=== PATIENT | female | born 1935 | race Caucasian/White ===

== ENCOUNTER 2017-04-01 16:25 | Inpatient (IN) | payer OTHER, MEDICARE ==
[~2017-04-01] VITALS: Ht 157.5 cm; Wt 71.9 kg
[2017-04-01] VITALS (8 sets, daily range): BP systolic 136–181; BP diastolic 75–89; PULSE 74–97; RESP 16–20; TEMP 98.1–98.7; O2SAT 92–100
[~2017-04-01 16:25] MED LIST: LOVA20TA PO; PRED10 PO; RANI150 PO; SERT50 PO; VALI5TAB PO
[2017-04-01] MEDS ORDERED: SODIUM CHLORIDE 0.9% FLUSH 10 ML FLUSH IVF PRN (16:45)
[2017-04-01] MEDS ORDERED: DIAZ5TAB PO (16:58)
[2017-04-01] MEDS ORDERED: LOVA20TA PO (16:58)
[2017-04-01] MEDS ORDERED: SODIUM CHLORID 0.9% 500 ML INJ 500 ML IV ONE (17:15)
--- NOTE | 2017-04-01 17:16 | PD ---
HPI Chief Complaint: Fall Time Seen by Provider: 16:49 Travel History International Travel<30 days: No Contact w/Intl Traveler<30days: No Traveled to known affect area: No History of Present Illness HPI 81-year-old female patient with history of hypertension and previous TIA, presents to the ER today because she states that she was on the toilet today and as she was getting up, suddenly had loss of strength and went down on the toilet hitting the back of the toilet and breaking it, and falling to the floor. She reports hitting the lower back area to the floor. She denies any head injury or loss of consciousness. She states after she fell, she felt very dizzy and felt like the room was spinning, like she was having vertigo. Symptoms lasted for several hours but is now subsiding. She denies any numbness , weakness, vomiting, or any other symptoms. Modifying Factors: None Associated Signs & Symptoms: Fall, vertigo Risk Factors: Elderly PFSH Past Medical History Hx Anticoagulant Therapy: Yes (asa 81mg) Blood Disorders: No Anxiety: Yes Depression: Yes Heart Rhythm Problems: No Cancer: No Cardiovascular Problems: Yes High Cholesterol: Yes Chest Pain: No Congestive Heart Failure: No Diminished Hearing: No Endocrine: No Genitourinary: No Hypertension: Yes Immune Disorder: No Musculoskeletal: No Neurologic: Yes (POSSIBLE TIA THIS ADMISSION 12/2015) Psychiatric: Yes Respiratory: No Tetanus Vaccination: Unknown Influenza Vaccination: No Menopausal: No Past Surgical History Other Surgery: Yes (biopsy right breast ) Social History Alcohol Use: No Tobacco Use: No Substance Use: No Allergies-Medications (Allergen,Severity, Reaction): Coded Allergies: No Known Allergies (Unverified , 04/01/17) Reported Meds & Prescriptions Reported Meds & Active Scripts Active Reported Lovastatin 20 Mg Tab 20 Mg PO DAILY Diazepam 5 Mg Tab 5 Mg PO TID PRN Review of Systems Except as stated in HPI: all other systems reviewed are Neg Physical Exam Narrative GENERAL: [Well-developed pleasant elderly white female patient currently in mild distress. Awake and oriented 3. SKIN: Focused skin assessment warm/dry. HEAD: Atraumatic. Normocephalic. EYES: Pupils equal and round. No scleral icterus. No injection or drainage. ENT: No nasal bleeding or discharge. Mucous membranes pink and moist. NECK: Trachea midline. No JVD. CARDIOVASCULAR: Regular rate and rhythm. No murmur appreciated. RESPIRATORY: No accessory muscle use. Clear to auscultation. Breath sounds equal bilaterally. GASTROINTESTINAL: Abdomen soft, non-tender, nondistended. Hepatic and splenic margins not palpable. BACK: No CVA tenderness. No rash. No point tenderness on palpation of the spine. There is notable ecchymosis to the right lower back area and right buttocks area which are mildly tender to palpation. MUSCULOSKELETAL: No obvious deformities. No clubbing. No cyanosis. No edema. NEUROLOGICAL: Awake and alert. No obvious cranial nerve deficits. Motor grossly within normal limits. Normal speech. No pronator drift. PSYCHIATRIC: Appropriate mood and affect; insight and judgment normal. Data Data Last Documented VS Vital Signs Date Time Temp Pulse Resp B/P Pulse Ox O2 Delivery O2 Flow Rate FiO2 04/01/17 18:03 100 Room Air 04/01/17 18:03 88 16 145/75 04/01/17 16:35 98.7 Orders Electrocardiogram (04/01/17 16:41) Complete Blood Count With Diff (04/01/17 16:41) Comprehensive Metabolic Panel (04/01/17 16:41) Magnesium (Mg) (04/01/17 16:41) Ckmb (Isoenzyme) Profile (04/01/17 16:41) Troponin I (04/01/17 16:41) Act Partial Throm Time (Ptt) (04/01/17 16:41) Prothrombin Time / Inr (Pt) (04/01/17 16:41) Urinalysis - C+S If Indicated (04/01/17 16:41) Ct Brain W/O Iv Contrast(Rout) (04/01/17 16:41) Ecg Monitoring (04/01/17 16:41) Iv Access Insert/Monitor (04/01/17 16:41) Oximetry (04/01/17 16:41) Sodium Chloride 0.9% Flush (Ns Flush) (04/01/17 16:45) Chest, Single Ap (04/01/17 16:49) Pelvis, Ap Only (Routine) (04/01/17 16:49) Sodium Chlorid 0.9% 500 Ml Inj (Ns 500 M (04/01/17 17:15) Aspirin (Aspirin) (04/01/17 18:15) Labs Laboratory Tests Test 04/01/17 17:02 White Blood Count 9.6 TH/MM3 Red Blood Count 4.76 MIL/MM3 Hemoglobin 14.2 GM/DL Hematocrit 42.8 % Mean Corpuscular Volume 89.8 FL Mean Corpuscular Hemoglobin 29.7 PG Mean Corpuscular Hemoglobin 33.1 % Concent Red Cell Distribution Width 12.7 % Platelet Count 194 TH/MM3 Mean Platelet Volume 7.8 FL Neutrophils (%) (Auto) 72.5 % Lymphocytes (%) (Auto) 16.4 % Monocytes (%) (Auto) 9.8 % Eosinophils (%) (Auto) 0.4 % Basophils (%) (Auto) 0.9 % Neutrophils # (Auto) 7.0 TH/MM3 Lymphocytes # (Auto) 1.6 TH/MM3 Monocytes # (Auto) 0.9 TH/MM3 Eosinophils # (Auto) 0.0 TH/MM3 Basophils # (Auto) 0.1 TH/MM3 CBC Comment DIFF FINAL Differential Comment Prothrombin Time 10.9 SEC Prothromb Time International 1.0 RATIO Ratio Activated Partial 21.7 SEC Thromboplast Time Sodium Level 141 MEQ/L Potassium Level 4.1 MEQ/L Chloride Level 107 MEQ/L Carbon Dioxide Level 27.9 MEQ/L Anion Gap 6 MEQ/L Blood Urea Nitrogen 18 MG/DL Creatinine 1.10 MG/DL Estimat Glomerular Filtration 47 ML/MIN Rate Random Glucose 107 MG/DL Calcium Level 8.9 MG/DL Magnesium Level 2.1 MG/DL Total Bilirubin 0.4 MG/DL Aspartate Amino Transf 28 U/L (AST/SGOT) Alanine Aminotransferase 35 U/L (ALT/SGPT) Alkaline Phosphatase 75 U/L Total Creatine Kinase 99 U/L Troponin I 0.10 NG/ML Total Protein 7.5 GM/DL Albumin 3.5 GM/DL [facility] Medical Decision Making Medical Screen Exam Complete: Yes Emergency Medical Condition: Yes Medical Record Reviewed: Yes Interpretation(s) EKG shows NSR, no ST elevation or depression, and no arrhythmias. No significant T-wave inversions. Laboratory Tests Test 04/01/17 17:02 Neutrophils (%) (Auto) 72.5 % (16.0-70.0) Monocytes (%) (Auto) 9.8 % (0.0-8.0) Activated Partial 21.7 SEC Thromboplast Time (24.3-30.1) Creatinine 1.10 MG/DL (0.50-1.00) Estimat Glomerular Filtration 47 ML/MIN (>89) Rate Random Glucose 107 MG/DL (74-106) Troponin I 0.10 NG/ML (0.02-0.05) Last 24 hours Impressions Pelvis X-Ray 04/01/171648 Signed Impressions: Service Date/Time: , April 01, 2017 17:18 - CONCLUSION: 1. No acute fracture or dislocation. Noel Patino MD Chest X-Ray 04/01/171648 Signed Impressions: Service Date/Time: , April 01, 2017 17:16 - CONCLUSION: 1. Mild left lung base atelectasis. Noel Patino MD Head CT 04/01/171640 Signed Impressions: Service Date/Time: , April 01, 2017 17:18 - CONCLUSION: Normal examination. Trae Pitts MD Differential Diagnosis Fall, dizzinessdysrhythmias versus TIA versus vertigo versus orthostasis versus metabolic issues versus dehydration Narrative Course EKG did not show any signs of dysrhythmias. Lab work is unremarkable for significant metabolic issues. Her troponin is mildly elevated for unknown reasons. She is not having any chest pains or shortness of breath. She has no focal neurological deficits. EKG did not show any signs of acute dysrhythmias or ST changes. At this point, considering the mildly elevated cardiac enzymes, patient should get further evaluation of her heart. My plan would be to admit her for further evaluation. Case is discussed with Dr. Jamison for admission. Diagnosis Primary Impression: Dizziness Additional Impression: Elevated troponin Admitting Information Admitting Physician Requests: Admit Randi Henderson MD Apr 01, 2017 17:16 Randi Henderson MD Apr 01, 2017 17:16
[2017-04-01 17:21] LABS: BASOPHIL # 0.1 TH/MM3 (0-0.2); BASOPHIL % 0.9 % (0.0-2.0); EOSINOPHIL % 0.4 % (0.0-4.0); HEMATOCRIT 42.8 % (35.0-46.0); LYMPH % 16.4 % (9.0-44.0); LYMPHOCYTE # 1.6 TH/MM3 (1.0-4.8); MEAN CELL VOLUME 89.8 FL (80.0-100.0); MEAN CORPUSCULAR HEMOGLOBIN 29.7 PG (27.0-34.0); MEAN CORPUSCULAR HGB CONC 33.1 % (32.0-36.0); MONO % 9.8 % (0.0-8.0); NEUT % 72.5 % (16.0-70.0); PLATELET COUNT 194 TH/MM3 (150-450); RED BLOOD COUNT 4.76 MIL/MM3 (4.00-5.30); RED CELL DISTRIBUTION WIDTH 12.7 % (11.6-17.2); WHITE BLOOD COUNT 9.6 TH/MM3 (4.0-11.0)
[2017-04-01 17:22] LABS: HEMO FLAGS DIFF FINAL
[2017-04-01 17:30] LABS: CHLORIDE 107 MEQ/L (98-107); POTASSIUM 4.1 MEQ/L (3.5-5.1); SODIUM (NA) 141 MEQ/L (136-145)
--- NOTE | 2017-04-01 17:32 | RADRPT ---
EXAM DATE/TIME: 04/01/2017 17:16 [facility] COMPARISON: CHEST SINGLE AP, December 22, 2015, 16:45. INDICATIONS : Shortness of breath after falling in her bathroom this morning. MEDICAL HISTORY : Hypercholesterolemia. SURGICAL HISTORY : Biopsy right breast. ENCOUNTER: Initial ACUITY: 1 day PAIN SCORE: 0/10 LOCATION: Bilateral chest FINDINGS: Mild airspace disease in the left lung base likely reflects atelectasis. No significant pneumothorax or pleural effusion. Cardiomediastinal contours are within normal limits. Bony thorax is grossly inta ct. CONCLUSION: 1. Mild left lung base atelectasis. Noel Patino MD on April 01, 2017 at 17:28 Board Certified Radiologist. This report was verified electronically.
--- NOTE | 2017-04-01 17:33 | RADRPT ---
EXAM DATE/TIME: 04/01/2017 17:18 [facility] COMPARISON: No previous studies available for comparison. INDICATIONS : Right hip/buttox pain after falling in her bathroom this morning. MEDICAL HISTORY : Hypercholesterolemia. SURGICAL HISTORY : Biopsy right breast. ENCOUNTER: Initial ACUITY: 1 day PAIN SCORE: 7/10 LOCATION: pelvis FINDINGS: A single frontal view of the pelvis demonstrates no evidence of fracture. The bony pelvic ring is in tact. Bony mineralization is normal for age. Degenerative spondylosis of the lower lumbar spine. Th e soft tissues are intact. CONCLUSION: 1. No acute fracture or dislocation. Noel Patino MD on April 01, 2017 at 17:30 Board Certified Radiologist. This report was verified electronically.
[2017-04-01 17:34] LABS: ANION GAP 6 MEQ/L (5-15); BICARBONATE 27.9 MEQ/L (21.0-32.0); MAGNESIUM 2.1 MG/DL (1.5-2.5)
[2017-04-01 17:35] LABS: APTT (PATIENT) 21.7 SEC (24.3-30.1); BLOOD UREA NITROGEN 18 MG/DL (7-18); PROTHROMBIN TIME - PATIENT 10.9 SEC (9.8-11.6)
--- NOTE | 2017-04-01 17:35 | RADRPT ---
EXAM DATE/TIME: 04/01/2017 17:18 [facility] COMPARISON: CT BRAIN W/O CONTRAST, December 22, 2015, 17:06. INDICATIONS : Dizziness. Fall. RADIATION DOSE: 61.05 CTDIvol (mGy) MEDICAL HISTORY : Cerebrovascular disease. Cardiovascular disease Hypertension. SURGICAL HISTORY : None. ENCOUNTER: Initial ACUITY: 1 day PAIN SCALE: 0/10 LOCATION: cranial TECHNIQUE: Multiple contiguous axial images were obtained of the head. Using automated exposure control and adj ustment of the mA and/or kV according to patient size, radiation dose was kept as low as reasonably a chievable to obtain optimal diagnostic quality images. DICOM format image data is available electro nically for review and comparison. FINDINGS: CEREBRUM: The ventricles are normal for age. No evidence of midline shift, mass lesion, hemorrhage or acute in farction. No extra-axial fluid collections are seen. POSTERIOR FOSSA: The cerebellum and brainstem are intact. The 4th ventricle is midline. The cerebellopontine angle i s unremarkable. EXTRACRANIAL: The visualized portion of the orbits is intact. SKULL: The calvaria is intact. No evidence of skull fracture. CONCLUSION: Normal examination. Trae Pitts MD on April 01, 2017 at 17:33 Board Certified Radiologist. This report was verified electronically.
[2017-04-01 17:37] LABS: ALT (GPT) 35 U/L (10-53); AST (GOT) 28 U/L (15-37)
[2017-04-01 17:38] LABS: GLOMERULAR FILTRATION RATE 47 ML/MIN (>89)
[2017-04-01 17:39] LABS: TOTAL BILIRUBIN ADULT 0.4 MG/DL (0.2-1.0)
[2017-04-01 17:40] LABS: ALKALINE PHOSPHATASE 75 U/L (45-117)
[2017-04-01 17:57] LABS: CREATINE KINASE 99 U/L (26-192)
[2017-04-01] MEDS ORDERED: ASPIRIN 325 MG TAB PO ONE (18:15)
[2017-04-01] MEDS ORDERED: SODIUM CHLORIDE 0.9% FLUSH 10 ML FLUSH IV FLUSH PRN (18:30)
[2017-04-01] MEDS ORDERED: SENNOSIDES 8.6 MG TAB PO PRN (18:30)
[2017-04-01] MEDS ORDERED: NALOXONE HCL 0.4 MG/ML AMP IV PRN (18:30)
[2017-04-01] MEDS ORDERED: MAGNESIUM HYDROXIDE SUSP 30 ML CUP PO PRN (18:30)
[2017-04-01] MEDS ORDERED: LACTULOSE SYRUP 20 GM/30 ML CUP PO PRN (18:30)
[2017-04-01] MEDS ORDERED: BISACODYL 10 MG SUPP RECTAL PRN (18:30)
[2017-04-01 18:39] LABS: BLOOD, URINE NEG (NEG); GLUCOSE,URINE NEG (NEG); KETONE, URINE NEG (NEG); NITRITE,URINE NEG (NEG); PH, URINE 7.5 (5.0-8.5)
[2017-04-01] MEDS: SODIUM CHLOR 0.45% 1000 ML INJ 1,000 ML IV SCH (18:41)
[2017-04-01 18:54] LABS: URINE COLOR YELLOW (YELLW/STRAW)
[2017-04-01 18:55] LABS: MUCUS URINE FEW /lpf (OCC)
[2017-04-01 18:56] LABS: COMMENT (UR) CULTURE INDICATED; CULTURE IF INDICATED CULTURE INDICATED; RBC, URINE 0-3 /hpf (0-3); RENAL EPITHELIAL CELLS 0-5 /hpf; SQUAMOUS EPITHELIAL CELL URINE > 8 /hpf (0-5)
[2017-04-01] MEDS: SODIUM CHLORIDE 0.9% FLUSH 10 ML FLUSH IV FLUSH SCH (22:00)
[2017-04-02] VITALS (8 sets, daily range): BP systolic 105–138; BP diastolic 57–77; PULSE 65–84; RESP 16–20; TEMP 97–99.3; O2SAT 92–96
--- NOTE | 2017-04-02 06:07 | PD.CONS ---
HPI Consult Requested By Reason for Consult Elevated troponin Primary Care Physician No Primary Care Physician History of Present Illness The patient has no cardiac history. She is very active. 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 Yesterday morning at 6:30 in the morning she had urinated. She got up and the room started spinning. She fell back. She did try doing this again and the room was spinning. On and off all day when she look into the distance her vision would be spinning. She had no lightheadedness, chest pain, shortness of breath or any other cardiac symptomatology. The spinning has resolved. Review of Systems Respiratory: DENIES: Snoring Gastrointestinal: DENIES: Change in bowel habits Genitourinary: DENIES: Urinary incontinence Neurologic: COMPLAINS OF: Poor Balance, DENIES: Tingling or numbness Past Family Social History Allergies: Coded Allergies: No Known Allergies (Unverified , 04/01/17) Past Medical History Hyperlipidemia Past Surgical History Breast biopsy Reported Medications Reported Meds & Active Scripts Active Reported Lovastatin 20 Mg Tab 20 Mg PO DAILY Diazepam 5 Mg Tab 5 Mg PO TID PRN Active Ordered Medications Current Medications Medications (Trade) Dose Ordered Sig/Deneen Route Start Time Stop Time Status Last Admin (09/14 NS 1000 ml Inj) 1,000 ml @ 75 mls/hr [id number] IV 04/01/17 18:28 04/01/17 18:41 (NS Flush) 2 ml UNSCH PRN IV FLUSH 04/01/17 18:30 (NS Flush) 2 ml BID IV FLUSH 04/01/17 21:00 04/01/17 22:00 (Narcan Inj) 0.4 mg UNSCH PRN IV 04/01/17 18:30 (Milk Of Magnesia Liq) 30 ml Q12H PRN PO 04/01/17 18:30 (Senokot) 17.2 mg Q12H PRN PO 04/01/17 18:30 (Dulcolax Supp) 10 mg DAILY PRN RECTAL 04/01/17 18:30 (Lactulose Liq) 30 ml DAILY PRN PO 04/01/17 18:30 Family History Brother who had an RI at age 65 Social History She is a . She never smoked and very rarely drinks. Physical Exam Vital Signs Vital Signs Date Time Temp Pulse Resp B/P Pulse Ox O2 Delivery O2 Flow Rate FiO2 04/02/17 04:00 98.0 84 16 105/57 93 04/02/17 00:00 97.4 75 16 138/77 96 04/01/17 21:59 77 04/01/17 20:42 98.1 79 18 144/81 94 04/01/17 20:35 74 20 136/76 98 04/01/17 20:00 74 20 142/80 97 04/01/17 19:24 98 04/01/17 19:18 82 20 176/89 86 20 181/79 165/79 04/01/17 18:03 100 Room Air 04/01/17 18:03 88 16 145/75 100 Room Air 04/01/17 16:52 98 Room Air 04/01/17 16:52 16 98 Room Air 04/01/17 16:35 98.7 97 16 138/75 92 Physical Exam CONSTITUTIONAL: A well-developed, well-nourished patient in no apparent distress. EYES: Conjunctiva normal. Sclera nonicteric. Eyelids normal. No xanthelasma. HEENT: Oral mucosa normal without pallor or cyanosis. NECK: JVD less than or equal to 5 cm of water. RESPIRATORY: Breathing is unlabored without accessory muscle use. Normal breath sounds. No wheezes, rales or rubs present. CARDIOVASCULAR: Normal point of maximal impulse. No cardiac thrill present. Regular rate and rhythm. No murmurs, gallops, rubs or clicks present. PULSES: Carotid arteries: Normal pulses bilaterally without bruits. Palmar arteries: Radial pulses 2+ bilaterally Abdominal aorta: Aortic pulses normal without bruits or enlargement. Femoral arteries: 2+ bilaterally. No bruits present. Pedal pulses: 2+ bilaterally PERIPHERAL CIRCULATION: No cyanosis, clubbing, edema or varicosities present. GASTROINTESTINAL: Normal bowel sounds. Nontender without rigidity or guarding. No masses present. No hepatomegaly. Liver is nontender to palpation and spleen is nonpalpable. Digital rectal exam-not indicated for cardiovascular exam. MUSCULOSKELETAL: No kyphosis or scoliosis present. The patient is not ambulated. Able to undergo rehabilitation. SKIN: Skin turgor is normal. No rashes. NEUROLOGIC: Grossly oriented to person, place and time. Normal mood and appropriate affect. Laboratory EKG shows sinus rhythm and is essentially normal with at most borderline nonspecific T-wave changes. Laboratory Tests Test 04/01/17 04/01/17 04/01/17 17:02 18:16 22:29 White Blood Count 9.6 Red Blood Count 4.76 Hemoglobin 14.2 Hematocrit 42.8 Mean Corpuscular Volume 89.8 Mean Corpuscular Hemoglobin 29.7 Mean Corpuscular Hemoglobin 33.1 Concent Red Cell Distribution Width 12.7 Platelet Count 194 Mean Platelet Volume 7.8 Neutrophils (%) (Auto) 72.5 Lymphocytes (%) (Auto) 16.4 Monocytes (%) (Auto) 9.8 Eosinophils (%) (Auto) 0.4 Basophils (%) (Auto) 0.9 Neutrophils # (Auto) 7.0 Lymphocytes # (Auto) 1.6 Monocytes # (Auto) 0.9 Eosinophils # (Auto) 0.0 Basophils # (Auto) 0.1 CBC Comment DIFF FINAL Differential Comment Prothrombin Time 10.9 Prothromb Time International 1.0 Ratio Activated Partial 21.7 Thromboplast Time Sodium Level 141 Potassium Level 4.1 Chloride Level 107 Carbon Dioxide Level 27.9 Anion Gap 6 Blood Urea Nitrogen 18 Creatinine 1.10 Estimat Glomerular Filtration 47 Rate Random Glucose 107 Calcium Level 8.9 Magnesium Level 2.1 Total Bilirubin 0.4 Aspartate Amino Transf 28 (AST/SGOT) Alanine Aminotransferase 35 (ALT/SGPT) Alkaline Phosphatase 75 Total Creatine Kinase 99 Troponin I 0.10 0.19 Total Protein 7.5 Albumin 3.5 Urine Color YELLOW Urine Turbidity CLEAR Urine pH 7.5 Urine Specific [place] 1.009 Urine Protein NEG Urine Glucose (UA) NEG Urine Ketones NEG Urine Occult Blood NEG Urine Nitrite NEG Urine Bilirubin NEG Urine Leukocyte Esterase SMALL Urine RBC 0-3 Urine WBC 9-14 Urine WBC Clumps FEW Urine Squamous Epithelial > 8 Cells Urine Renal Epithelial Cells 0-5 Urine Mucus FEW Microscopic Urinalysis Comment CULTURE INDICATED Date/Time Procedure Status Source Growth 04/01/17 18:16 Urine Culture Received Urine Clean Catch Pending Result Diagram: 04/01/17 1702 04/01/17 170 Imaging Last 48 hours Impressions Pelvis X-Ray 04/01/171648 Signed Impressions: Service Date/Time: March 17:18 - CONCLUSION: 1. No acute fracture or dislocation. Noel Patino MD Chest X-Ray 04/01/17 1649 Signed Impressions: Service Date/Time: March 17:16 - CONCLUSION: 1. Mild left lung base atelectasis. Noel Patino MD Head CT 04/01/17 1641 Signed Impressions: Service Date/Time: , April 01, 2017 17:18 - CONCLUSION: Normal examination. Trae Pitts MD Assessment and Plan Assessment and Plan Problems: Acute vertigo Elevated troponinnonspecific Hyperlipidemia Recommendations: The patient has a mildly elevated troponin but absolutely no cardiac symptoms and essentially normal EKG. She presented with acute vertigo which appears to be noncardiac. I would recommend the following: Vertigo workup with primary service She needs to be on baby aspirin daily along with her statin Echocardiogram is pending I will order a CT angiogram of the coronary arteries. If her echocardiogram and this are essentially normal, I would assume the elevated troponin is nonspecific and not work up further. We will not follow but be available if needed. Please contact us for any significant abnormalities on these tests. I will start her on metoprolol to slow her heart rate for this test but if there are no abnormalities this can be discontinued. I will also take the liberty of starting her on low-dose Lovenox. Ezequiel Zelaya MD Apr 02, 2017 06:07
[2017-04-02] MEDS: METOPROLOL TARTRATE 25 MG TAB PO SCH ×3 (06:18→21:41)
[2017-04-02] MEDS: ENOXAPARIN SODIUM 40 MG/0.4 ML SYRINGE SQ SCH (06:23)
[2017-04-02 06:47] LABS: CHLORIDE 111 MEQ/L (98-107); POTASSIUM 3.9 MEQ/L (3.5-5.1); SODIUM (NA) 144 MEQ/L (136-145)
[2017-04-02 06:52] LABS: ANION GAP 6 MEQ/L (5-15); BICARBONATE 27.4 MEQ/L (21.0-32.0); BLOOD UREA NITROGEN 16 MG/DL (7-18)
[2017-04-02 06:55] LABS: ALT (GPT) 27 U/L (10-53); AST (GOT) 22 U/L (15-37); GLOMERULAR FILTRATION RATE 56 ML/MIN (>89)
[2017-04-02 06:56] LABS: TOTAL BILIRUBIN ADULT 0.4 MG/DL (0.2-1.0)
[2017-04-02 06:58] LABS: ALKALINE PHOSPHATASE 62 U/L (45-117)
[2017-04-02] MEDS: SODIUM CHLOR 0.45% 1000 ML INJ 1,000 ML IV SCH ×2 (08:42→21:42)
[2017-04-02] MEDS: SODIUM CHLORIDE 0.9% FLUSH 10 ML FLUSH IV FLUSH SCH ×2 (08:42→21:41)
--- NOTE | 2017-04-02 08:45 | EKG ---
Date Performed: 04/02/2017 Time Performed: 05:00:15 PTAGE: 81 years EKG: Sinus rhythm BORDERLINE LEFT AXIS DEVIATION BORDERLINE ECG INTERPRETATION BASED ON A DEFAULT AGE OF 38 YEARS NO PREVIOUS TRACING DOCTOR: Yohannes Coburn Interpretating Date/Time 04/02/2017 08:43:06
--- NOTE | 2017-04-02 08:47 | EKG ---
Date Performed: 04/01/2017 Time Performed: 22:24:12 PTAGE: 81 years EKG: Sinus rhythm BORDERLINE LEFT AXIS DEVIATION NONSPECIFIC T-WAVE ABNORMALITY BORDERLINE ECG PREVIOUS TRACING : 04/01/2017 16.51 Compared to prior tracing no significant change DOCTOR: Yohannes Coburn Interpretating Date/Time 04/02/2017 08:45:22
--- NOTE | 2017-04-02 10:52 | RADRPT ---
EXAM DATE/TIME: 04/02/2017 09:28 [facility] COMPARISON: US CAROTID ARTERIES, December 23, 2015, 17:42. INDICATIONS : Syncope. MEDICAL HISTORY : Hypercholesterolemia. Hypertension. TIA. SURGICAL HISTORY : Right breast biopsy. ENCOUNTER: Subsequent ACUITY: 1 day PAIN SCORE: 3/10 LOCATION: Bilateral neck PEAK SYSTOLIC VELOCITIES (cm/sec): ICA/CCA RATIO: Right: 1.1 Left: 1.2 ICA: Right: 89 Left: 135 CCA: Right: 84 Left: 114 ECA: Right: 88 Left: 94 VERTEBRAL: Right: 76 antegrade Left: 61 antegrade Elevated flow velocities and ICA/CCA ratios have been found to correlate with increased degrees of vessel stenosis, calculated as percentage of diameter relative to a normal segment of distal ICA/CCA FINDINGS: RIGHT CAROTID: Minimal calcified plaque. No significant stenosis is visualized. The waveforms are within normal peterson its. LEFT CAROTID: Minimal calcified plaque. No significant stenosis is visualized. The waveforms are within normal peterson its. VERTEBRAL ARTERIES: Antegrade flow is seen in both vertebral arteries. MISCELLANEOUS: None. CONCLUSION: 1. Patent carotid arteries bilaterally. 2. Antegrade flow in both vertebral arteries. Ottoniel Bach Jr., MD on April 02, 2017 at 9:53 Board Certified Radiologist. This report was verified electronically.
[2017-04-02] MEDS ORDERED: NITROGLYCERIN 0.4 MG SL 25 TABS/BTL SL PRN (11:30)
[2017-04-02] MEDS ORDERED: METOPROLOL TARTRATE 5 MG/5 ML VIAL IV PRN (11:30)
[2017-04-02] MEDS ORDERED: METOPROLOL TARTRATE 50 MG TAB PO PRN (11:45)
--- NOTE | 2017-04-02 14:20 | HHI.HP ---
[facility] Primary [facility] Physician No Primary Care Physician Admission Diagnosis dizziness/elevated troponin Diagnoses: Travel History International Travel<30 Days: No Contact w/Intl Traveler <30 Da: No Traveled to Known Affected Are: No History of Present Illness 81-year-old female with history of hyperlipidemia, anxiety, who presents with fall around 6:30 AM on 04/01. She had just gotten up from urinating, felt dizzy , fell back breaking the toilet tank, was able to close off water flow to toilet , however upon doing back up, slipped, falling and hitting her right hip. She denies any lightheadedness, however does report dizziness described as room spinning. She denies any headache. Denies any nausea or vomiting. He does report that today her vertigo seems to have resolved. She denies any chest pain or shortness of breath. She denies any ear pain or difficult hearing. Upon evaluation in ER, troponin found to be slightly elevated up to 0.19, however this has trended down. Review of Systems Performed and negative except for history of present illness and past medical history. Past Family Social History Past Medical History Hyperlipidemia Anxiety Past Surgical History History of right breast biopsy. Benign. No other surgeries Reported Medications Reported Meds & Active Scripts Active Reported Lovastatin 20 Mg Tab 20 Mg PO DAILY Diazepam 5 Mg Tab 5 Mg PO TID PRN Allergies: Coded Allergies: No Known Allergies (Unverified , 04/01/17) Family History Father at age 84 from pancreatic cancer. Mother at age 64 from heart disease Social History Denies any history of smoking. Reports very rare alcohol use. Denies any illicit drugs. Physical Exam Vital Signs Vital Signs Date Time Temp Pulse Resp B/P Pulse Ox O2 Delivery O2 Flow Rate FiO2 04/02/17 11:57 97.0 65 20 121/68 94 04/02/17 08:40 68 04/02/17 08:00 97.8 68 20 135/76 94 04/02/17 04:00 98.0 84 16 105/57 93 04/02/17 00:00 97.4 75 16 138/77 96 04/01/17 21:59 77 04/01/17 20:42 98.1 79 18 144/81 94 04/01/17 20:35 74 20 136/76 98 04/01/17 20:00 74 20 142/80 97 04/01/17 19:24 98 04/01/17 19:18 82 20 176/89 86 20 181/79 165/79 04/01/17 18:03 100 Room Air 04/01/17 18:03 88 16 145/75 100 Room Air 04/01/17 16:52 98 Room Air 04/01/17 16:52 16 98 Room Air 04/01/17 16:35 98.7 97 16 138/75 92 Physical Exam GENERAL: This is a well-nourished, well-developed patient, in no apparent distress. Alert and oriented 3. SKIN: No rashes, ecchymoses or lesions. Cool and dry. HEAD: Atraumatic. Normocephalic. No temporal or scalp tenderness. EYES: Pupils equal round and reactive. Extraocular motions intact. No scleral icterus. No injection or drainage. ENT: Nose without bleeding, purulent drainage or septal hematoma. Throat without erythema, tonsillar hypertrophy or exudate. Uvula midline. Airway patent. NECK: Trachea midline. No JVD or lymphadenopathy. Supple, nontender, no meningeal signs. CARDIOVASCULAR: Regular rate and rhythm without murmurs, gallops, or rubs. RESPIRATORY: Clear to auscultation. Breath sounds equal bilaterally. No wheezes , rales, or rhonchi. GASTROINTESTINAL: Abdomen soft, non-tender, nondistended. No hepato-splenomegaly , or palpable masses. No guarding. MUSCULOSKELETAL: Extremities without clubbing, cyanosis, or edema. No joint tenderness, effusion, or edema noted. No calf tenderness. Negative Homans sign bilaterally. NEUROLOGICAL: Awake and alert. Cranial nerves II through XII intact. Motor and sensory grossly within normal limits. Five out of 5 muscle strength in all muscle groups. Normal speech. Laboratory Laboratory Tests Test 04/01/17 04/01/17 04/01/17 04/02/17 17:02 18:16 22:29 05:45 White Blood Count 9.6 Red Blood Count 4.76 Hemoglobin 14.2 Hematocrit 42.8 Mean Corpuscular Volume 89.8 Mean Corpuscular Hemoglobin 29.7 Mean Corpuscular Hemoglobin 33.1 Concent Red Cell Distribution Width 12.7 Platelet Count 194 Mean Platelet Volume 7.8 Neutrophils (%) (Auto) 72.5 Lymphocytes (%) (Auto) 16.4 Monocytes (%) (Auto) 9.8 Eosinophils (%) (Auto) 0.4 Basophils (%) (Auto) 0.9 Neutrophils # (Auto) 7.0 Lymphocytes # (Auto) 1.6 Monocytes # (Auto) 0.9 Eosinophils # (Auto) 0.0 Basophils # (Auto) 0.1 CBC Comment DIFF FINAL Differential Comment Prothrombin Time 10.9 Prothromb Time International 1.0 Ratio Activated Partial 21.7 Thromboplast Time Sodium Level 141 144 Potassium Level 4.1 3.9 Chloride Level 107 111 Carbon Dioxide Level 27.9 27.4 Anion Gap 6 6 Blood Urea Nitrogen 18 16 Creatinine 1.10 0.95 Estimat Glomerular Filtration 47 56 Rate Random Glucose 107 77 Calcium Level 8.9 8.4 Magnesium Level 2.1 Total Bilirubin 0.4 0.4 Aspartate Amino Transf 28 22 (AST/SGOT) Alanine Aminotransferase 35 27 (ALT/SGPT) Alkaline Phosphatase 75 62 Total Creatine Kinase 99 Troponin I 0.10 0.19 0.12 Total Protein 7.5 6.7 Albumin 3.5 3.2 Urine Color YELLOW Urine Turbidity CLEAR Urine pH 7.5 Urine Specific [place] 1.009 Urine Protein NEG Urine Glucose (UA) NEG Urine Ketones NEG Urine Occult Blood NEG Urine Nitrite NEG Urine Bilirubin NEG Urine Leukocyte Esterase SMALL Urine RBC 0-3 Urine WBC 9-14 Urine WBC [place] FEW Urine Squamous Epithelial > 8 Cells Urine Renal Epithelial Cells 0-5 Urine Mucus FEW Microscopic Urinalysis Comment CULTURE INDICATED Date/Time Procedure Status Source Growth 04/01/17 18:16 Urine Culture Received Urine Clean Catch Pending Result Diagram: 04/01/17 1702 04/02/17 0545 Imaging Last Impressions Carotid Artery Ultrasound 04/02/17 0000 Signed Impressions: Service Date/Time: Sunday, April 02, 2017 09:28 - CONCLUSION: 1. Patent carotid arteries bilaterally. 2. Antegrade flow in both vertebral arteries. Ottoniel Bach Jr., MD Pelvis X-Ray 04/01/17 1649 Signed Impressions: Service Date/Time: March 17:18 - CONCLUSION: 1. No acute fracture or dislocation. Noel Patino MD Chest X-Ray 04/01/17 1649 Signed Impressions: Service Date/Time: March 17:16 - CONCLUSION: 1. Mild left lung base atelectasis. Noel Patino MD Head CT 04/01/17 1641 Signed Impressions: Service Date/Time: , April 01, 2017 17:18 - CONCLUSION: Normal examination. Trae Pitts MD Assessment and Plan Assessment and Plan //Vertigo. Currently resolved. Continue to monitor. Instructed patient on [place] maneuver if necessary. //Possible presyncope as described in the ER. Does not appear to be the case, however chronic ultrasound ordered and within normal limits. Echocardiogram pending. //Troponin elevation up to 0.19. Subsequently trending down. Worrisome due to symptoms. Echocardiogram pending. Cardiology consultation appreciated. -CTA coronaries pending. Patient may be able to discharge home today as this returns //History of anxiety. Patient denies any anxiety currently. No need for benzodiazepine at this time. //Prophylaxis. Lovenox. Discussed Condition With Patient, nurse. Physician Certification 2 Midnight Certification Type: Admission for Inpatient Services Order for Inpatient Services The services are ordered in accordance with Medicare regulations or non- Medicare payer requirements, as applicable. In the case of services not specified as inpatient-only, they are appropriately provided as inpatient services in accordance with the 2-midnight benchmark. Estimated LOS (days): 2 days is the estimated time the patient will need to remain in the hospital, assuming treatment plan goals are met and no additional complications. Post-Hospital Plan: Home Francisco Jamison MD Apr 02, 2017 14:20
[2017-04-02] MEDS ORDERED: IOHEXOL 350 MG/ML 10 ML VIAL (for RAD DIAG) IV ONE (14:48)
--- NOTE | 2017-04-02 14:51 | EKG ---
Date Performed: 04/01/2017 Time Performed: 16:51:52 PTAGE: 81 years EKG: Sinus rhythm BORDERLINE LEFT AXIS DEVIATION NONSPECIFIC T-WAVE ABNORMALITY BORDERLINE ECG PREVIOUS TRACING : 12/22/2015 16.57 Compared to prior tracing no significant change DOCTOR: Yohannes Coburn Interpretating Date/Time 04/02/2017 14:49:38
--- NOTE | 2017-04-02 15:40 | RADRPT ---
EXAM DATE/TIME: 04/02/2017 12:45 [place] COMPARISON: No previous studies available for comparison. INDICATIONS : Coronary atherosclerosis. Dizziness. IV CONTRAST: 125 cc Omnipaque 350 (iohexol) IV RADIATION DOSE: 35.93 CTDIvol (mGy) MEDICAL HISTORY : Cardiovascular disease. Cerebrovascular disease. Hypertension. SURGICAL HISTORY : None. ENCOUNTER: Initial ACUITY: 2 days PAIN SCALE: 0/10 LOCATION: chest TECHNIQUE: Volumetric scanning was obtained through the heart. Images were acquired on a multislice multiple ro w detector helical scanner timed for acquisition during peak arterial contrast. Images were reconstr ucted using a retrospective gating algorithm including single sector and multi-sector algorithms at m ultiple phases of the cardiac cycle. Images were interpreted using a combination of 2D and 3D visual ization modes including curved planar reformation, thin slab maximum intensity projection and volume rendering. Using automated exposure control and adjustment of the mA and/or kV according to patient size, radiation dose was kept as low as reasonably achievable to obtain optimal diagnostic quality im ages. DICOM format image data is available electronically for review and comparison. FINDINGS: VESSEL ANALYSIS: DOMINANCE: The coronary system is codominant. LEFT MAIN: Normal vessel without calcification or stenosis. LAD: Normal vessel without calcification or stenosis. Scattered intraluminal irregularities.Diagonal arter ies are patent. CIRCUMFLEX: Normal vessel without calcification or stenosis. Scattered intraluminal irregularities. Obtuse margin al branches are patent. Posterior lateral branches are patent. RCA: Normal vessel without calcification or stenosis. Scattered intraluminal irregularities. Posterior santosh cending arteries are patent. OTHER: None. CONCLUSION: 1. Mild atherosclerotic changes. 2. No stenosis or aneurysm of coronary arteries. Ananda Hannah MD on April 02, 2017 at 15:33 Board Certified Radiologist. This report was verified electronically.
--- NOTE | 2017-04-02 16:28 | ECHRPT ---
Indication: SYNCOPE CONCLUSIONS Normal left ventricular size. Mild concentric left ventricular hypertrophy. The left ventricular systolic function is low normal with an estimated ejection fraction in the rang e of 50- 55%. Doppler parameters are consistent with impaired left ventricular relaxtion (grade 1 diastolic dysfun ction). No regional wall motion abnormalities are present. image quality limited due to technical difficulties There is mild tricuspid valve regurgitation. Normal estimated pulmonary pressures. BP: 105 / 57 HR: 84 Rhythm: Sinus MEASUREMENTS (Male / Female) Normal Values Technical Quality:Fair 2D ECHO LV Diastolic Diameter PLAX 3.8 cm 4.2 - 5.9 / 3.9 - 5.3 cm LV Systolic Diameter PLAX 2.9 cm IVS Diastolic Thickness 1.1 cm 0.6 - 1.0 / 0.6 - 0.9 cm LVPW Diastolic Thickness 1.1 cm 0.6 - 1.0 / 0.6 - 0.9 cm LV Relative Wall Thickness 0.6 LVOT Diameter 1.9 cm Aortic Root Diameter 2.6 cm LA Systolic Diameter LX 2.7 cm 3.0 - 4.0 / 2.7 - 3.8 cm M-MODE AV Cusp Separation MM 1.7 cm DOPPLER AV Peak Velocity 136.0 cm/s AV Peak Gradient 7.4 mmHg AV Mean Gradient 4.0 mmHg AV Velocity Time Integral 25.2 cm LVOT Peak Velocity 103.0 cm/s LVOT Peak Gradient 4.2 mmHg LVOT Velocity Time Integral 20.3 cm LVOT Cardiac Index 2704.6 cm/minm AV Area Cont Eq vti 2.3 cm AV Area Cont Eq pk 2.1 cm Mitral E Point Velocity 52.3 cm/s Mitral A Point Velocity 75.0 cm/s Mitral E to A Ratio 0.7 LV E' Lateral Velocity 6.4 cm/s Mitral E to LV E' Lateral Ratio 8.1 LV E' Septal Velocity 6.4 cm/s Mitral E to LV E' Septal Ratio 8.1 TR Peak Velocity 240.0 cm/s TR Peak Gradient 23.0 mmHg PV Peak Velocity 53.4 cm/s PV Peak Gradient 1.1 mmHg FINDINGS LEFT VENTRICLE Normal left ventricular size. Mild concentric left ventricular hypertrophy. The left ventricular systolic function is low normal with an estimated ejection fraction in the rang e of 50- 55%. Doppler parameters are consistent with impaired left ventricular relaxtion (grade 1 diastolic dysfun ction). No regional wall motion abnormalities are present. RIGHT VENTRICLE Normal right ventricular size and systolic function. LEFT ATRIUM The left atrial size is normal. RIGHT ATRIUM The right atrial size is normal. ATRIAL SEPTUM Normal atrial septal thickness without atrial level shunting by limited color doppler interrogation. AORTA The aortic root and proximal ascending aorta are normal in size on limited imaging. MITRAL VALVE Structurally normal mitral valve. No mitral valve stenosis or regurgitation. AORTIC VALVE Trileaflet aortic valve. No aortic valve stenosis or regurgitation. TRICUSPID VALVE Structurally normal tricuspid valve. There is mild tricuspid valve regurgitation. Normal estimated pulmonary pressures. PULMONARY VALVE The pulmonary valve is not well visualized. VESSELS The inferior vena cava is normal in size. PERICARDIUM No pericardial effusion. Heron Chowdhury MD, FACC, FSCAI (Electronically Signed) Final Date:02 April 2017 16:27
[2017-04-03 00:30] VITALS: BP 104/47; PULSE 64; RESP 12; TEMP 97.7; O2SAT 95
[2017-04-03 04:28] VITALS: BP 109/51; PULSE 61; RESP 14; TEMP 97.5; O2SAT 95
[2017-04-03] MEDS: ENOXAPARIN SODIUM 40 MG/0.4 ML SYRINGE SQ SCH (05:50)
[2017-04-03 08:00] VITALS: BP 131/72; PULSE 76; PULSE 81; RESP 19; TEMP 97.6; O2SAT 94
[2017-04-03] MEDS: SODIUM CHLORIDE 0.9% FLUSH 10 ML FLUSH IV FLUSH SCH (09:00)
[2017-04-03] MEDS: METOPROLOL TARTRATE 25 MG TAB PO SCH (09:03)
[2017-04-03] MEDS: SODIUM CHLOR 0.45% 1000 ML INJ 1,000 ML IV SCH (09:05)
[2017-04-03] MEDS ORDERED: METO25TA3 PO (11:01)
[2017-04-03] MEDS ORDERED: LISI-519 PO (11:10)
[2017-04-03] MEDS ORDERED: LISINOPRIL 5 MG TAB PO ONE (11:15)
[2017-04-03 12:00] VITALS: BP 139/67; PULSE 79; RESP 20; TEMP 97.8; O2SAT 94
--- NOTE | 2017-04-03 12:18 | HM ---
Date Performed: 04/01/2017 Time Performed: 20:38:00 HOOKUP DATE: 04/01/17 08:38:00 PM [place] ANALYSIS START TIME: 04/01/2017 8:43:00 PM ANALYSIS END TIME: 04/02/2017 8:47:00 PM PATIENT AGE: 81 PATIENT HEIGHT: 62 PATIENT WEIGHT: 154 DRUG LIST PATIENT DIAGNOSIS: Dizziness TEST NARRATIVE: The patient's average heart rate was 73 BPM. No episodes of tachycardia wer e noted. No episodes of bradycardia were noted. No pauses exceeding 2.0 seconds were noted. 9 ventricular ectopics, which represented < 1% of the total beat count, were noted. The highest vent ricular ectopic frequency occurred from 10:00 PM to 11:00 PM [place]. During this time 3 VE(s) occurred. Ventricular ectopics were observed as 9 isolated beat(s) only. No couplets or runs were noted. 11 supraventricular ectopics, which represented < 1% of the total beat count, were noted. The highe st supraventricular ectopic frequency occurred from 12:00 AM to 01:00 AM Fri. During this time 2 SVE (s) occurred. No episodes of ST depression (defined as -1.0 mm or more) were noted in channel 1. No episodes of ST depression (defined as -1.0 mm or more) were noted in channel 2. No episodes of S T depression (defined as -1.0 mm or more) were noted in channel 3. TEST INTERPRETATION: The patient was monitored for 24 hours. The patient was in normal Sinus [facility] . The average heart rate was 73 bpm. The maximum heart rate was 115 bpm. The minimum heart rate wa s 56 bpm. There were 9 PVCs and 11 PACs. There were periods of sinus bradycardia. There were period s of tachycardia. Signed by : Tiago Chowdhury
--- NOTE | 2017-04-04 14:35 | HHI.DS ---
Discharge Summary Admission Date Apr 01, 2017 at 18:32 Discharge Date: Apr 03, 2017 Admitting Diagnosis dizziness/elevated troponin (1) Dizziness ICD Code: R42 (2) Elevated troponin ICD Code: R74.8 Procedures no invasive procedures Brief History - From Admission 81-year-old female with history of hyperlipidemia, anxiety, who presents with fall around 6:30 AM on 04/01. She had just gotten up from urinating, felt dizzy , fell back breaking the toilet tank, was able to close off water flow to toilet , however upon doing back up, slipped, falling and hitting her right hip. She denies any lightheadedness, however does report dizziness described as room spinning. She denies any headache. Denies any nausea or vomiting. He does report that today her vertigo seems to have resolved. She denies any chest pain or shortness of breath. She denies any ear pain or difficult hearing. Upon evaluation in ER, troponin found to be slightly elevated up to 0.19, however this has trended down. CBC/BMP: 04/01/17 1702 04/02/17 0545 Significant Findings Laboratory Tests Test 04/01/17 04/01/17 04/01/17 04/02/17 17:02 18:16 22:29 05:45 Neutrophils (%) (Auto) 72.5 % (16.0-70.0) Monocytes (%) (Auto) 9.8 % (0.0-8.0) Activated Partial 21.7 SEC Thromboplast Time (24.3-30.1) Creatinine 1.10 MG/DL (0.50-1.00) Estimat Glomerular Filtration 47 ML/MIN (>89) 56 ML/MIN (>89) Rate Random Glucose 107 MG/DL (74-106) Troponin I 0.10 NG/ML 0.19 NG/ML 0.12 NG/ML (0.02-0.05) (0.02-0.05) (0.02-0.05) Urine Leukocyte Esterase SMALL (NEG) Urine WBC 9-14 /hpf (0-5) Urine WBC Clumps FEW (NONE) Urine Squamous Epithelial > 8 /hpf (0-5) Cells Urine Mucus FEW /lpf (OCC) Chloride Level 111 MEQ/L (98-107) Calcium Level 8.4 MG/DL (8.5-10.1) Albumin 3.2 GM/DL (3.4-5.0) Imaging Last Impressions Coronary Angiography CT 04/02/17 0000 Signed Impressions: Service Date/Time: Sunday, April 02, 2017 12:45 - CONCLUSION: 1. Mild atherosclerotic changes. 2. No stenosis or aneurysm of coronary arteries. Ananda Hannah MD Carotid Artery Ultrasound 04/02/17 0000 Signed Impressions: Service Date/Time: Sunday, April 02, 2017 09:28 - CONCLUSION: 1. Patent carotid arteries bilaterally. 2. Antegrade flow in both vertebral arteries. Ottoniel Bach Jr., MD Pelvis X-Ray 04/01/17 1649 Signed Impressions: Service Date/Time: , April 01, 2017 17:18 - CONCLUSION: 1. No acute fracture or dislocation. Noel Patino MD Chest X-Ray 04/01/17 1649 Signed Impressions: Service Date/Time: , April 01, 2017 17:16 - CONCLUSION: 1. Mild left lung base atelectasis. Noel Patino MD Head CT 04/01/17 1641 Signed Impressions: Service Date/Time: , April 01, 2017 17:18 - CONCLUSION: Normal examination. Trae Pitts MD PE at Discharge GENERAL: sitting up. nad, aaox3 SKIN: Warm and dry. HEAD: Normocephalic. EYES: No scleral icterus. No injection or drainage. NECK: Supple, trachea midline. No JVD or lymphadenopathy. CARDIOVASCULAR: Regular rate and rhythm without murmurs, gallops, or rubs. RESPIRATORY: Breath sounds equal bilaterally. No accessory muscle use. GASTROINTESTINAL: Abdomen soft, non-tender, nondistended. MUSCULOSKELETAL: No cyanosis, or edema. BACK: Nontender without obvious deformity. No CVA tenderness. Pt update on day of discharge pt feeling well. no lh, dizz. no cp or sob. wants to go home. Hospital Course Patient was admitted and monitored for vertigo, presyncope. Due to troponin elevation up to 0.19, cardiology was consulted. CT coronary angiography performed, and negative for stenosis as above. Carotid artery ultrasound negative for significant stenosis. Echocardiogram showed ejection fraction of 50-55%, however with grade 1 diastolic dysfunction. Due to this diastolic dysfunction, lisinopril was added. Patient continued to deny chest pain. Dizziness most likely secondary to vertigo. Patient was instructed on [place] maneuver. For problem-based summary from most recent progress note, please see below. //Vertigo. Currently resolved. Continue to monitor. Instructed patient on [place] maneuver if necessary. //Possible presyncope as described in the ER. Does not appear to be the case, however chronic ultrasound ordered and within normal limits. Echocardiogram pending. //Troponin elevation up to 0.19. Subsequently trending down. Worrisome due to symptoms. Echocardiogram pending. Cardiology consultation appreciated. -CTA coronaries pending. Patient may be able to discharge home today as this returns //History of anxiety. Patient denies any anxiety currently. No need for benzodiazepine at this time. //Prophylaxis. Lovenox. Pt Condition on Discharge: Good Discharge Disposition: Discharge Home Discharge Time: > 30 minutes Discharge Instructions DIET: Follow Instructions for: Heart Healthy Diet Activities you can perform: Regular-No Restrictions Follow up Referrals: Cardiology - 6 Weeks PCP Follow-up - 1 Week New Medications: Lisinopril (Lisinopril) 5 Mg Tab 5 MG PO DAILY Blood Pressure Management #30 Ref 0 TAB Continued Medications: Diazepam (Diazepam) 5 Mg Tab 5 MG PO TID PRN ANXIETY Ref 0 TAB Lovastatin (Lovastatin) 20 Mg Tab 20 MG PO DAILY Cholesterol Management #30 Ref 0 TAB Francisco Jamisno MD Apr 04, 2017 14:35
== END 2017-04-03 13:34 | disposition home or self-care (01) | DRG 149 ==
LOC: PHED 16:25 → PHEDA 18:26 → OBSVTOIN 18:32 → PH3B 20:42
PROVIDERS: ADMIT Internal Medicine; ATTEND Internal Medicine
DX: R42 Dizziness and giddiness (principal); I10 Essential (primary) hypertension; F41.9 Anxiety disorder, unspecified; E78.5 Hyperlipidemia, unspecified; R74.8 Abnormal levels of other serum enzymes; W18.12XA Fall from or off toilet with subsequent striking against object, initial encounter; Y93.E8 Activity, other personal hygiene; Y92.002 Bathroom of unspecified non-institutional (private) residence as the place of occurrence of the external cause; Y99.9 Unspecified external cause status; Z79.82 Long term (current) use of aspirin; Z86.73 Personal history of transient ischemic attack (TIA), and cerebral infarction without residual deficits; Z82.49 Family history of ischemic heart disease and other diseases of the circulatory system
CPT/HCPCS: 70450; 71010; 72170; 75574; 80053; 81001; 82550; 82948; 83735; 84484; 85025; 85610; 85730; 87086; 93005; 93225; 93226; 93306; 93880; 96360; J1650; J7040; Q9967